=== PATIENT | female | born 1990 | race Caucasian/White ===

== ENCOUNTER → 2023-05-25 09:29 | Outpatient (BNVA) | payer BC, SELFPAY | PROVIDERS: PCP Nurse Practitioner; Visit Provider Nurse Practitioner Women's Health | DX: Z30.431 Encounter for routine checking of intrauterine contraceptive device (principal); N92.6 Irregular menstruation, unspecified; Z12.4 Encounter for screening for malignant neoplasm of cervix | CPT/HCPCS: 81025; 87624 ==

== ENCOUNTER 2023-08-10 05:48 | Day surgery (SDC) | payer BC, SELFPAY ==
--- NOTE | 2023-08-09 22:43 | W.PM.OPSFHP ---
Same Day Surgery H&P Indication for Procedure/HPI DATE OF PROCEDURE: August 09, 2023 CHIEF COMPLAINT/INDICATIONFOR SURGICAL PROCEDURE: desires permanent sterilization PREOP DIAGNOSIS: desires permanent sterilization PLANNED PROCEDURE: Operation Date: 08/10/23 07:00 Proposed Procedures p Laparoscopic bilateral partial salpingectomy 75267,Z30.2(Not Applicable) - Vineet Okeefe MD 32 y.o.? G0 Had mirena IUD placed May 25, 2023 for painful and irregular periods But still wants permanent sterilization Now scheduled for laparoscopic bilateral partial salpingectomy Medications/Allergies* Home Medications Medication Instructions Recorded Confirmed Type levonorgestrel 21 mcg/24 hours (8 intrauterine 05/31/23 07/05/23 History yrs) 52 mg intrauterine device (Mirena) Allergies/Adverse Reactions Allergy/AdvReac Type Severity Reaction Status Date / Time No Known Allergies Allergy Verified 07/05/23 08:05 Pertinent History/Comorbid Conditions* Family History (Updated 05/15/23 @ 09:06 by Fariha Aden CMA) Diabetes Grandmother High cholesterol Grandmother Stroke Grandmother Denies family history of Colon cancer Ovarian cancer Heart disease Breast cancer Hypertension Uterine cancer Thyroid disease Pertinent Exam Findings alert, oriented x 3, clear to auscultation bilaterally and regular rate & rhythm Pertinent Data Pap?05-25-23? NILM,? negative HPV Recommendations Surgery/Procedure today Coding Level of Care Code Acute Code for Chg Fwd Time Spent (min) 20
[2023-08-10] VITALS (13 sets, daily range): BP systolic 90–138; BP diastolic 67–99; PULSE 72–105; RESP 10–17; TEMP 36.1–36.4; O2SAT 94–99; BMI 39.6
[2023-08-10] MEDS: sodium chloride 0.9% 1,000 ML 30 ML IV (06:25)
[2023-08-10 06:26] LABS: OR HCG Qualitative Urine Negative (Negative)
--- NOTE | 2023-08-10 06:49 | ANES.PREANE2 ---
Pre-Anesthetic Assessment Height/Weight: Height 1.55 m Weight 95.254 kg Temp Pulse Resp BP Pulse Ox O2 Del Method 97 F L 99 16 138/99 94 Room Air 08/10/23 06:02 08/10/23 06:02 08/10/23 06:02 08/10/23 06:02 08/10/23 06:02 08/10/23 06:02 Preop Diagnosis: desires permanent sterilization Operation Date: 08/10/23 07:00 Proposed Procedures p Laparoscopic bilateral partial salpingectomy 12231,Z30.2(Not Applicable) - Vineet Okeefe MD Familial anesthetic complications: None Was Beta Lamont taken within 24 hours: N/A Was Clonidine taken within 24 hours: N/A Last intake: Intake Last Liquid Date 08/09/23 Last Liquid Time 19:00 Last Solid Date 08/09/23 Last Solid Time 19:00 Social No alcohol and No tobacco Exam alert, oriented x 3, clear to auscultation bilaterally and regular rate & rhythm Airway Mallampati: Class I Dentition: full Comments: Comments: wisdom teeth out Metabolic Morbid Obesity Anesthetic Plan ASA status: 2 Anesthesia: General Risk of > 500 ml blood loss (7ml/kg in children): No Medications/Allergies Home Medications Medication Instructions Recorded Confirmed Last Taken Type levonorgestrel 21 mcg/24 hours (8 21 mcg intrauterine DIRECTED 05/31/23 08/10/23 08/09/23 History yrs) 52 mg intrauterine device (Mirena) ibuprofen 800 mg tablet 800 mg PO TID 7 days #21 tabs 07/05/23 08/10/23 Unknown Rx acetaminophen-pamabrom 500 mg-25 1 tab PO Q4H PRN Pain 08/10/23 08/10/23 08/09/23 History mg tablet (Midol) Allergies Allergy/AdvReac Type Severity Reaction Status Date / Time No Known Allergies Allergy Verified 07/05/23 08:05 Current Medications Generic Name Dose Route Start Last Admin Trade Name Freq PRN Reason Stop Dose Admin Sodium Chloride 1,000 mls @ 30 mls/hr 08/10/23 06:00 08/10/23 06:25 Sodium Chloride 0.9% IV 08/11/23 05:59 30 mls/hr .Q24H LEONARDO Administration PFSH Anesthesia Family History Grandmother High cholesterol Stroke Diabetes Denies family history of Colon cancer Ovarian cancer Heart disease Breast cancer Hypertension Uterine cancer Thyroid disease Female Reproductive History Date of last menstrual period: 08/05/23 Data Anesthesia Cardiac Studies: No Data to Display
--- NOTE | 2023-08-10 06:52 | W.PM.OPSUD ---
Surgery/Procedure H&P Update DATE OF PROCEDURE: August 10, 2023 DATE H&P PERFORMED: 08/09/23 H&P UPDATE INFORMATION: I have reviewed H&P completed within last 30 days, I have examined patient prior to procedure and No changes to prior documentation PREOP DIAGNOSIS: desires permanent sterilization PRIMARY INDICATION FOR PROCEDURE: desires permanent sterilization PLANNED PROCEDURE: Operation Date: 08/10/23 07:00 Proposed Procedures p Laparoscopic bilateral partial salpingectomy 78489,Z30.2(Not Applicable) - Vineet Okeefe MD
--- NOTE | 2023-08-10 08:45 | ANE.PACU2 ---
Inpatient post-anesthesia follow up: Airway intact: Yes Vital signs: Temperature 97.6 F Pulse Rate 79 Respiratory Rate 16 Blood Pressure 94/72 Pulse Oximetry 95 Oxygen Delivery Me thod Room Air Oxygen Flow Rate 6 Fraction of Inspir ed Oxygen Hydration adequate: Yes Nausea and vomiting: No Pain level: 1 Mental status: Baseline
--- NOTE | 2023-08-10 09:05 | P.OP_ITS ---
Operative Report Date of procedure: August 10, 2023 Pre-op diagnosis: desires permanent sterilization Post-op diagnosis: same Post-op findings: normal uterus, tubes, and ovaries Procedure done: laparoscopic bilateral partial salpingectomy Implants: none Specimens removed/disposition: bilateral partial fallopian tube segments, sent to pathology Surgeon: Vineet Okeefe MD Anesthesia: General Estimated blood loss (mL): 10 Complications: none Condition: stable Disposition: PACU Brief History: 33 y.o. desires permanent sterilization Procedure: Informed consent was obtained.? The patient was taken to the OR and placed on the table.? General endotracheal anesthesia was induced.? The patient was then placed in dorsolithotomy position.? The abdomen and perineum were then prepped and draped in the usual fashion.? A 5 mm subumbilical skin incision was made.? A 5 mm trocar with sheath was then inserted into the peritoneal cavity under direct visualization with the laparoscope.? After confirming intraperitoneal position, pneumoperitoneum was achieved.? Two separate 5 mm incisions were made in the right and left mid- quadrants.? 5 mm trocars with sheaths were then inserted into the peritoneal cavity under direct visualization with the laparoscope. The right fallopian tube was then identified to its fimbrial end.? Starting at the fimbrial end, the mesosalpinx was then coagulated and cut using the Ligasure device.? A 3-4 cm portion of the right fallopian tube was excised and removed via one of the ports.? This was sent to pathology.? There was no bleeding seen. Similarly, the left fallopian tube was identified to its fimbrial end.? A 3-4 cm portion of the left fallopian tube was excised and removed, sent to pathology.? There was no bleeding. All instruments were then removed from the peritoneal cavity after the pneumoperitoneum was allowed to escape.? The skin incisions were closed using 3- O chromic in subcuticular fashion.? Dermabond was applied.? The patient was then placed supine and awakened, taken the the PACU in good condition. Postoperative condition:? good EBL:? 10? cc Sponge, instrument, and needle counts correct x two
== END 2023-08-10 09:34 | disposition home or self-care (01) ==
PROVIDERS: Anesthesiology; PCP Nurse Practitioner; Visit Provider Obstetrics & Gynecology
PROC: (CPT 58661; principal; 2023-08-10 07:00)
DX: Z30.2 Encounter for sterilization (principal); E66.01 Morbid (severe) obesity due to excess calories; Z68.39 Body mass index [BMI] 39.0-39.9, adult
CPT/HCPCS: 58661; 81025; 84703; 88302; J0131; J1100; J1170; J1200; J1885; J2250; J2405; J2704; J2710; J3490; J7030

== ENCOUNTER → 2023-12-28 11:08 | Outpatient (BNVA) | payer BC, SELFPAY | PROVIDERS: PCP Nurse Practitioner; Visit Provider Psychiatry & Neurology Psychiatry | DX: F41.1 Generalized anxiety disorder (principal); F33.1 Major depressive disorder, recurrent, moderate; F12.10 Cannabis abuse, uncomplicated; N92.6 Irregular menstruation, unspecified; N95.1 Menopausal and female climacteric states | CPT/HCPCS: 82670; 83036; 83525; 84146; 84403; 84439; 84443; 84481 ==

== ENCOUNTER → 2025-01-16 14:46 | Outpatient (BNVA) | payer BC, SELFPAY | PROVIDERS: PCP Nurse Practitioner; Visit Provider Nurse Practitioner | DX: F90.0 Attention-deficit hyperactivity disorder, predominantly inattentive type (principal) | CPT/HCPCS: 80306 ==